=== PATIENT | male | born 1990 | race African-American/Black ===

== ENCOUNTER 2021-11-03 08:55 | Emergency (ER) | payer MEDICAID ==
[~2021-11-03] VITALS: Ht 165.1 cm; Wt 57.6 kg
[2021-11-03 09:06] VITALS: BP 117/71
--- NOTE | 2021-11-03 09:11 | NUR ---
Patient ambulated with steady gait to bed 1.
--- NOTE | 2021-11-03 09:27 | NUR ---
31 Y/O M, CAME IN WITH C/O CHEEK SWELLING AND PAIN, STATED GUMS ARE SWELLING, PT STATED PAIN 04/25 STARTED 3 DAYS AGO, PT STATED HIS TEETH WERE ALREADY NOT GOOD, HE ATE SOMETHING AND IT STARTED TO HURT. PT TAKEN IBUPROFEN AND PAIN HAS NOT RESOLVED. DENIES ANY PMH, RX: IBUPROFEN.
[2021-11-03] MEDS ORDERED: KETOROLAC 30 MG/ML VIAL IM ONE (09:45)
[2021-11-03] MEDS ORDERED: LIDOCAINE/EPI 2% 1:100000 20 ML VIAL INJ ONE (09:45)
[2021-11-03] MEDS ORDERED: BUPIVACAINE-MPF 0.5% 30 ML VIAL INJ ONE (09:45)
[2021-11-03] MEDS ORDERED: HYDR-5080 PO (10:15)
[2021-11-03] MEDS ORDERED: AMOX1TAB8 PO (10:15)
[2021-11-03] MEDS ORDERED: IBUP-2213 PO (10:15)
[2021-11-03 11:00] VITALS: BP 115/68
--- NOTE | 2021-11-03 11:00 | NUR ---
Patient discharged with v/s stable. Written and verbal after care instructions given and explained. Patient alert, oriented and verbalized understanding of instructions. Ambulatory with steady gait. All questions addressed prior to discharge. ID band removed. Patient advised to follow up with PMD. Rx of AMOX,NORCO,IBU given. Patient educated on indication of medication including possible reaction and side effects. Opportunity to ask questions provided and answered.
== END 2021-11-03 11:00 | disposition home or self-care (01) ==
LOC: MED 08:55
DX: K04.7 Periapical abscess without sinus (principal); F17.200 Nicotine dependence, unspecified, uncomplicated; Z79.1 Long term (current) use of non-steroidal anti-inflammatories (NSAID); Z79.891 Long term (current) use of opiate analgesic; Z79.2 Long term (current) use of antibiotics
CPT/HCPCS: 41800; 96372; 99284; J1885; J2001; J3490; 99283

== ENCOUNTER 2022-03-04 21:04 | Emergency (ER) | payer MEDICAID ==
[~2022-03-04] VITALS: Ht 165.1 cm; Wt 56.7 kg
[~2022-03-04 21:04] MED LIST: AMOX1TAB8 PO; HYDR-5080 PO; IBUP-2213 PO
[2022-03-04 21:40] VITALS: BP 137/80
--- NOTE | 2022-03-04 21:40 | NUR ---
SEEN AND EXAMINED BY JEANIE
--- NOTE | 2022-03-04 21:43 | NUR ---
TO LOBBY A/W BED AMBULATORY
[2022-03-04] MEDS ORDERED: predniSONE 20 MG TAB PO ONE (21:45)
[2022-03-04] MEDS ORDERED: ALBUTEROL SULFATE/IPRATROPIU 3 ML SOL IH ONE ×2 (21:45→22:10)
--- NOTE | 2022-03-04 22:05 | NUR ---
PT TAKEN BED 11
--- NOTE | 2022-03-04 22:15 | NUR ---
RT AT BEDSIDE GIVING BREATHING TREATMENTS
--- NOTE | 2022-03-04 22:25 | NUR ---
Patient stated, "I am always short of breath because I smoke. I know I have to stop." Patient educated in benefits of smoking cessation classes. Patient verbalized understanding of educations.
--- NOTE | 2022-03-04 22:33 | NUR ---
PT MOVED TO BED 2
[2022-03-04] MEDS ORDERED: ALBU0.0912 IH (22:50)
[2022-03-04] MEDS ORDERED: PRED20TA5 PO (22:50)
[2022-03-04 23:44] VITALS: BP 115/74
== END 2022-03-04 23:20 | disposition home or self-care (01) ==
LOC: MED 21:04
DX: J45.909 Unspecified asthma, uncomplicated (principal); F17.210 Nicotine dependence, cigarettes, uncomplicated; F12.90 Cannabis use, unspecified, uncomplicated; Z79.899 Other long term (current) drug therapy; Z71.6 Tobacco abuse counseling
CPT/HCPCS: 71045; 94640; 94760; 99285; J7512; Q0092

== ENCOUNTER 2022-11-01 18:28 | Emergency (ER) | payer MEDICAID ==
[~2022-11-01] VITALS: Ht 172.7 cm; Wt 74.8 kg
[~2022-11-01 18:28] MED LIST changes: +ALBU0.0912 IH; +PRED20TA5 PO
--- NOTE | 2022-11-01 18:35 | NUR ---
NA 1830
[2022-11-01 18:39] VITALS: BP 156/80
[2022-11-01] MEDS ORDERED: ALBU0.0912 INH (19:33)
[2022-11-01] MEDS ORDERED: PRON INH (19:33)
[2022-11-01] MEDS ORDERED: NEBU-109 MC (19:33)
--- NOTE | 2022-11-01 20:46 | NUR ---
Patient discharged with v/s stable. Written and verbal after care instructions given and explained. Patient alert, oriented and verbalized understanding of instructions. Ambulatory with steady gait. All questions addressed prior to discharge. ID band removed. Patient advised to follow up with PMD. Rx of ALBUTEROL AND NEBULIZER given. Patient educated on indication of medication including possible reaction and side effects. Opportunity to ask questions provided and answered.
== END 2022-11-01 20:46 | disposition home or self-care (01) ==
LOC: MED 18:28
DX: J45.909 Unspecified asthma, uncomplicated (principal); Z76.0 Encounter for issue of repeat prescription
CPT/HCPCS: 99281

== ENCOUNTER 2023-10-22 04:10 | Emergency (ER) | payer MEDICAID, OTHER ==
[~2023-10-22] VITALS: Ht 165.1 cm; Wt 59.0 kg
[~2023-10-22 04:10] MED LIST changes: +ALBU0.0912 INH; +NEBU-109 MC; +PRON INH
[2023-10-22 04:30] VITALS: BP 115/84; PULSE 72; RESP 19; TEMP 97.7; O2SAT 94
[2023-10-22] MEDS ORDERED: methylPREDNISolone SS 125 MG in WATER STERILE 2 ML IV ONE (04:45)
[2023-10-22 04:57] VITALS: PULSE 62; RESP 18; O2SAT 92
[2023-10-22] MEDS: IPRATROPIUM 0.02% 0.5 MG/2.5 ML NEBU INH ONE (04:57)
[2023-10-22] MEDS: ALBUTEROL 0.083% 2.5 MG/3 ML NEBU INH ONE (04:57)
[2023-10-22] MEDS: MAG SULF 2000 MG/WATER PREMIX 50 ML IV ONE (05:14)
[2023-10-22 06:26] LABS: BASOPHILS # (AUTO) 0.1 K/uL (0.00-0.22); BASOPHILS % (AUTO) 1.1 % (0.0-2.0); EOSINOPHILS # (AUTO) 0.2 K/uL (0-0.4); EOSINOPHILS % (AUTO) 3.2 % (0.0-4.0); HEMATOCRIT 45.3 % (36-52); HEMOGLOBIN 15.1 g/dL (12.0-18.0); LYMPHOCYTES # (AUTO) 2.6 K/uL (2.0-11.5); LYMPHOCYTES % (AUTO) 37.6 % (20.5-51.1); MEAN CORPUSCULAR HEMOGLOBIN 36 pg (27-31); MEAN CORPUSCULAR HGB CONC 33 g/dL (33-37); MEAN CORPUSCULAR VOLUME 107.2 fL (80-94); MONOCYTES # (AUTO) 0.6 K/uL (0.8-1.0); MONOCYTES % (AUTO) 8.8 % (1.7-9.3); NEUTROPHILS # (AUTO) 3.4 K/uL (1.8-7.7); NEUTROPHILS % (AUTO) 49.3 % (42.2-75.2); PLATELET COUNT (AUTO) 249 K/uL (140-450); RED BLOOD CELL COUNT(AUTO) 4.23 MIL/uL (4.20-6.10); RED CELL DISTRIBUTION WIDTH 12.5 % (11.6-13.7); WHITE BLOOD COUNT (AUTO) 6.8 K/uL (4.8-10.8)
[2023-10-22 06:29] LABS: APPEARANCE,URINE CLEAR (CLEAR); BILIRUBIN,URINE 2+ (NEGATIVE); BLOOD, URINE NEGATIVE (NEGATIVE); COLOR,URINE YELLOW (YELLOW); LEUKOCYTE ESTERASE ,URINE NEGATIVE (NEGATIVE); NITRITE, URINE NEGATIVE (NEGATIVE); PROTEIN,URINE NEGATIVE (NEGATIVE); UGLUCOSE NEGATIVE (NEGATIVE)
[2023-10-22 06:29] LABS: ANION GAP 11.6 (8-16); CALCIUM 8.5 mg/dL (8.5-10.1); CARBON DIOXIDE 30.3 mmol/L (21-32); CREATININE 1.3 mg/dL (0.6-1.3); POTASSIUM 3.9 mmol/L (3.5-5.1)
[2023-10-22 06:31] LABS: INR 1.14 (0.8-1.2); PARTIAL THROMBOPLASTIN TIME 29.7 secs (22-35.6); PROTHROMBIN TIME 11.9 secs (10.8-13.4)
[2023-10-22 06:39] LABS: LACTIC ACID 0.8 mmol/L (0.4-2.0)
[2023-10-22 06:44] LABS: AMPHETAMINE, URINE NEGATIVE ng/ml (NEG <=1000); BARBITURATE, URINE NEGATIVE ng/ml (NEG <=200); BENZODIAZEPINE, URINE NEGATIVE ng/mL (NEG <=200); CANNABINOID, URINE POSITIVE ng/mL (NEG <=50); COCAINE, URINE NEGATIVE ng/mL (NEG <=300); OPIATE, URINE NEGATIVE ng/mL (NEG <=2000); PHENCYCLIDINE SCREEN,URINE NEGATIVE ng/mL (NEG <=25)
[2023-10-22 06:47] LABS: BACTERIA,URINE OCCASSIONAL /HPF (None Seen); MUCUS,URINE 1+ /LPF (None Seen); RBC,URINE 0-5 /HPF (0-5); SQUAMOUS EPITHELIAL CELL,UR 0-3 (FEW) /LPF (0-3 (FEW)); WBC,URINE 0-5 /HPF (0-5)
[2023-10-22 06:50] LABS: ICTOTEST POSITIVE (NEGATIVE)
[2023-10-22 06:57] LABS: ALBUMIN 3.4 g/dL (3.4-5.0); BILIRUBIN,DIRECT 0.2 mg/dL (0.0-0.3); TOTAL BILIRUBIN 0.8 mg/dL (0.0-1.0); TOTAL PROTEIN, SERUM 6.8 g/dL (6.4-8.2)
[2023-10-22] MEDS ORDERED: PRED20TA5 PO (07:16)
[2023-10-22] MEDS ORDERED: FLUT1DSK2 IH (07:16)
[2023-10-22] MEDS ORDERED: ALBU0.0912 INH (07:16)
[2023-10-22 07:22] VITALS: BP 113/66; PULSE 57; RESP 18; TEMP 97.7; O2SAT 94
[2023-10-22] MEDS ORDERED: NEBU1DEV2 MC (07:22)
== END 2023-10-22 07:27 | disposition home or self-care (01) ==
LOC: MED 04:10
DX: J45.901 Unspecified asthma with (acute) exacerbation (principal); F17.210 Nicotine dependence, cigarettes, uncomplicated; F12.90 Cannabis use, unspecified, uncomplicated; Z79.899 Other long term (current) drug therapy
CPT/HCPCS: 36415; 36600; 71045; 80048; 80076; 80305; 81001; 83605; 84484; 85025; 85610; 85730; 87040; 93005; 94664; 96365; 96366; 99285; J3475; J7613; J7644; 94640

== ENCOUNTER 2024-04-21 06:21 | Emergency (ER) | payer MEDICAID, OTHER ==
[~2024-04-21] VITALS: Ht 165.1 cm; Wt 90.7 kg
[~2024-04-21 06:21] MED LIST changes: +FLUT1DSK2 IH; +NEBU1DEV2 MC
[2024-04-21 06:30] VITALS: BP 132/82; PULSE 74; RESP 16; TEMP 98.2; O2SAT 98
[2024-04-21 06:59] VITALS: PULSE 63; RESP 16; O2SAT 96
[2024-04-21] MEDS: IPRATROPIUM 0.02% 0.5 MG/2.5 ML NEBU INH ONE (06:59)
[2024-04-21] MEDS: ALBUTEROL 0.083% 2.5 MG/3 ML NEBU INH ONE (06:59)
[2024-04-21] MEDS ORDERED: ALBU0.0912 INH (07:43)
[2024-04-21] MEDS ORDERED: PRED20TA5 PO (07:53)
[2024-04-21] MEDS ORDERED: AZIT250T4 PO (07:54)
[2024-04-21 08:32] VITALS: BP 132/82; PULSE 63; RESP 16; TEMP 98.2; O2SAT 96
== END 2024-04-21 08:26 | disposition home or self-care (01) ==
LOC: MED 06:21
DX: J45.909 Unspecified asthma, uncomplicated (principal); Z79.899 Other long term (current) drug therapy
CPT/HCPCS: 71045; 94640; 99283; J7613; J7644